=== PATIENT | female | born 1985 | race Caucasian/White ===

== ENCOUNTER 2019-10-10 09:42 | Outpatient (CLI) | payer BC, SELFPAY ==
[2019-10-10 10:37] LABS: Alanine Aminotransferase 19 U/L (4-35); Albumin Level 4.4 g/dL (3.5-5.1); Alkaline Phosphatase 124 U/L (38-126); Aspartate Amino Transferase 21 U/L (14-36); Bilirubin,Total 0.4 mg/dL (0.2-1.3); Blood Urea Nitrogen 12 mg/dL (7-17); Calcium 9.4 mg/dL (8.4-10.2); Carbon Dioxide 30 mmol/L (22-30); Chloride 104 mmol/L (98-107); Estimated Glomerular Filt Rate > 60; Glucose 74 mg/dL (65-105); Sodium 139 mmol/L (137-145)
[2019-10-10 11:06] LABS: Thyroid Stimulating Hormone 0.218 uIU/mL (0.465-4.680)
[2019-10-10 12:06] LABS: Free T4 Free Thyroxine 0.98 ng/mL (0.78-2.19)
[2019-10-13 02:24] LABS: Thyroid Peroxidase Antibodies <1 IU/mL (<9)
[2019-10-13 03:37] LABS: Triiodothyronine T3 Free 2.9 pg/mL (2.3-4.2)
[2019-10-16 19:09] LABS: Thyroid Stimulating Immunoglob <89 % baseline (<140)
== END 2019-10-10 09:43 | disposition home or self-care (01) ==
LOC: ANHLAB 09:44
PROVIDERS: PCP Nurse Practitioner Family; Visit Provider Internal Medicine Endocrinology, Diabetes & Metabolism
DX: R94.6 Abnormal results of thyroid function studies (principal)
CPT/HCPCS: 36415; 80053; 84439; 84443; 84445; 84481; 86376

== ENCOUNTER 2020-02-12 15:37 | Outpatient (CLI) | payer BC, SELFPAY ==
--- NOTE | ~2020-02-12 | US_ITS ---
EXAMINATION: US thyroid DATE: 02/12/2020 16:04 INDICATION: Thyroid nodule. TECHNIQUE: Multiple ultrasound images of the thyroid were obtained. COMPARISON: Ultrasound 08/07/2019 FINDINGS: The right thyroid lobe measures 5.9 x 2.7 x 1.7 cm. The left thyroid lobe measures 5.6 x 1.7 x 1.4 c m. In the right thyroid lobe, there is an 11 mm predominantly solid, hypoechoic, wzsth-gqir-cugy nod ule with smooth margin without echogenic foci (TI-RADS TR4). In the right thyroid lobe, there is a 6 mm solid, very hypoechoic, gaikg-ovyc-ltks nodule with smooth margin without echogenic foci (TR4). In the left thyroid lobe, there is a 1.6 cm mixed cystic and solid, isoechoic, dzire-umhx-zmxe nodule w ith ill-defined margin without echogenic foci (TR2). IMPRESSION: 1. Stable thyroid nodules. Thyroid ultrasound is recommended in one year. Reviewed, dictated and finalized at location A.
== END 2020-02-12 15:38 | disposition home or self-care (01) ==
LOC: ANHIMG 15:41
PROVIDERS: PCP Nurse Practitioner Family; Visit Provider Internal Medicine Endocrinology, Diabetes & Metabolism
DX: E04.2 Nontoxic multinodular goiter (principal)
CPT/HCPCS: 76536

== ENCOUNTER 2020-02-24 09:21 | Outpatient (CLI) | payer BC, SELFPAY ==
[2020-02-24 10:56] LABS: Alanine Aminotransferase 18 U/L (4-35); Albumin Level 4.5 g/dL (3.5-5.1); Alkaline Phosphatase 131 U/L (38-126); Anion Gap 12.8 mmol/L (7-16); Aspartate Amino Transferase 22 U/L (14-36); Bilirubin,Total 0.4 mg/dL (0.2-1.3); Blood Urea Nitrogen 10 mg/dL (7-17); Calcium 9.3 mg/dL (8.4-10.2); Carbon Dioxide 27 mmol/L (22-30); Chloride 101 mmol/L (98-107); Cholesterol 189 mg/dL (0-200); Estimated Glomerular Filt Rate > 60; Glucose 91 mg/dL (65-105); HDL Direct 60 mg/dL; Potassium 4.8 mmol/L (3.4-5.0); Sodium 136 mmol/L (137-145); Triglycerides 167 mg/dL (<150)
[2020-02-24 11:07] LABS: LDL Cholesterol Direct 99 mg/dL
[2020-02-24 11:31] LABS: Free T4 Free Thyroxine 0.92 ng/mL (0.78-2.19)
[2020-02-24 12:15] LABS: Hemoglobin A1C 4.8 % (<5.7)
[2020-02-28 12:26] LABS: Testosterone Total 51 ng/dL (2-45)
[2020-02-28 14:53] LABS: DHEA-Sulfate 313 mcg/dL (23-266)
[2020-02-29 06:34] LABS: Testosterone Free 5.4 pg/mL (0.2-5.0); Thyroid Peroxidase Antibodies <1 IU/mL (<9); Triiodothyronine T3 Free 3.4 pg/mL (2.3-4.2)
== END 2020-02-24 09:22 | disposition home or self-care (01) ==
LOC: ANHLAB 09:24
PROVIDERS: PCP Nurse Practitioner Family; Visit Provider Internal Medicine Endocrinology, Diabetes & Metabolism
DX: E04.1 Nontoxic single thyroid nodule (principal); R63.5 Abnormal weight gain; Z83.3 Family history of diabetes mellitus
CPT/HCPCS: 36415; 80053; 80061; 82308; 82627; 83036; 83525; 84402; 84403; 84439; 84443; 84481; 86376

== ENCOUNTER 2020-02-27 07:50 | Outpatient (CLI) | payer BC, SELFPAY ==
[2020-02-27 10:22] LABS: Cortisol Random 0.72 ug/dL
== END 2020-02-27 07:51 | disposition home or self-care (01) ==
PROVIDERS: PCP Nurse Practitioner Family; Visit Provider Internal Medicine Endocrinology, Diabetes & Metabolism
DX: R63.5 Abnormal weight gain (principal)
CPT/HCPCS: 36415; 82533

== ENCOUNTER 2020-08-17 08:00 | Outpatient (CLI) | payer BC, SELFPAY ==
[2020-08-17 08:47] LABS: Alanine Aminotransferase 17 U/L (4-35); Albumin Level 4.5 g/dL (3.5-5.1); Alkaline Phosphatase 106 U/L (38-126); Anion Gap 4 mmol/L (8-16); Aspartate Amino Transferase 22 U/L (14-36); Bilirubin,Total 0.5 mg/dL (0.2-1.3); Blood Urea Nitrogen 10 mg/dL (7-17); Calcium 9.5 mg/dL (8.4-10.2); Carbon Dioxide 28 mmol/L (22-30); Chloride 104 mmol/L (98-107); Estimated Glomerular Filt Rate > 60; Glucose 98 mg/dL (65-105); Hemoglobin A1C 4.8 % (<5.7); Sodium 136 mmol/L (137-145)
[2020-08-17 09:18] LABS: Thyroid Stimulating Hormone 0.561 uIU/mL (0.465-4.680)
[2020-08-17 09:19] LABS: Free T4 Free Thyroxine 0.89 ng/mL (0.78-2.19)
[2020-08-19 03:21] LABS: Thyroid Peroxidase Antibodies <1 IU/mL (<9)
[2020-08-20 04:05] LABS: Calcitonin <2 pg/mL (<=5)
[2020-08-20 13:37] LABS: Testosterone Free 2.5 pg/mL (0.1-6.4); Testosterone Total 14 ng/dL (2-45)
== END 2020-08-17 08:01 | disposition home or self-care (01) ==
PROVIDERS: PCP Nurse Practitioner Family; Visit Provider Internal Medicine Endocrinology, Diabetes & Metabolism
DX: E04.1 Nontoxic single thyroid nodule (principal); E28.2 Polycystic ovarian syndrome
CPT/HCPCS: 36415; 80053; 82308; 83036; 84402; 84403; 84439; 84443; 86376

== ENCOUNTER 2021-01-18 08:36 | Outpatient (CLI) | payer BC, SELFPAY ==
[2021-01-18 09:12] LABS: Alanine Aminotransferase 13 U/L (4-35); Albumin Level 4.5 g/dL (3.5-5.1); Alkaline Phosphatase 94 U/L (38-126); Anion Gap 9 mmol/L (8-16); Aspartate Amino Transferase 21 U/L (14-36); Bilirubin,Total 0.6 mg/dL (0.2-1.3); Blood Urea Nitrogen 13 mg/dL (7-17); Calcium 9.3 mg/dL (8.4-10.2); Carbon Dioxide 25 mmol/L (22-30); Chloride 105 mmol/L (98-107); Estimated Glomerular Filt Rate > 60; Glucose 91 mg/dL (65-105); Potassium 4.1 mmol/L (3.4-5.0); Sodium 139 mmol/L (137-145)
[2021-01-18 09:45] LABS: Thyroid Stimulating Hormone 0.312 uIU/mL (0.465-4.680)
[2021-01-18 09:58] LABS: Free T4 Free Thyroxine 1.17 ng/mL (0.78-2.19)
[2021-01-20 20:21] LABS: Thyroid Peroxidase Antibodies <1 IU/mL (<9)
[2021-01-21 05:19] LABS: Calcitonin <2 pg/mL (<=5)
[2021-01-21 14:57] LABS: Testosterone Free 3.6 pg/mL (0.1-6.4); Testosterone Total 18 ng/dL (2-45)
[2021-01-21 20:30] LABS: Triiodothyronine T3 Free 3.3 pg/mL (2.3-4.2)
== END 2021-01-18 08:37 | disposition home or self-care (01) ==
LOC: ANHLAB 08:39
PROVIDERS: PCP Nurse Practitioner Family; Visit Provider Internal Medicine Endocrinology, Diabetes & Metabolism
DX: E28.2 Polycystic ovarian syndrome (principal); E04.1 Nontoxic single thyroid nodule
CPT/HCPCS: 36415; 80053; 82308; 83036; 84402; 84403; 84439; 84443; 84481; 86376

== ENCOUNTER 2021-04-29 09:24 | Outpatient (CLI) | payer BC, SELFPAY ==
[2021-04-29 10:31] LABS: CRP < 0.5 mg/dL (<1.0)
[2021-04-29 10:35] LABS: Rheumatoid Factor < 8.6 IU/ML (<12)
[2021-04-29 10:46] LABS: Erythrocyte Sedimentation Rate 8 mm/hr (0-20)
== END 2021-04-29 09:25 | disposition home or self-care (01) ==
PROVIDERS: PCP Nurse Practitioner Family; Visit Provider Internal Medicine Endocrinology, Diabetes & Metabolism
DX: M19.90 Unspecified osteoarthritis, unspecified site (principal)
CPT/HCPCS: 36415; 85652; 86038; 86140; 86430

== ENCOUNTER 2021-07-06 08:14 | Outpatient (CLI) | payer BC, SELFPAY ==
--- NOTE | ~2021-07-06 | US_ITS ---
EXAMINATION: US thyroid DATE: 07/06/2021 09:25 INDICATION: Thyroid nodule TECHNIQUE: Multiple ultrasound images of the thyroid were obtained. COMPARISON: None. FINDINGS: The right thyroid lobe measures 6.2 x 2.6 x 1.9 cm. The left thyroid lobe measures 6.4 x 1.9 x 1.5 c m. No significant change in a 1.2 cm wider than tall mixed solid and cystic hypoechoic nodule with s mooth margins and without echogenic foci (TI-RADS 4, moderately suspicious , FNA if >=1.5 cm, annual followup is >=1 cm) at the inferior right thyroid. Unchanged 6 mm anechoic cystic TI-RADS 1 nodule at the inferior right thyroid. There are 3 nodules in the left thyroid lobe including 2 additional BI-R ADS 1 anechoic cystic nodules measuring 10 mm and 5 mm. The larger third 1.5 cm wider than tall nodul e at the inferior left thyroid lobe appears solid and hypoechoic with smooth margins and without echo genic foci whereas previously it was predominantly cystic, now consistent with a TI RADS 4 nodule. Th ere is normal echotexture, echogenicity and vascular flow throughout the thyroid gland. IMPRESSION: 1. Interval change in appearance of a previously predominant cystic, now solid 1.5 cm TI RADS 4 nodul e at the inferior left thyroid lobe for which ultrasound guided biopsy would be recommended. Reviewed, dictated and finalized at location B. [employer] IMPRESSION: 1. Interval change in appearance of a previously predominant cystic, now solid 1.5 cm TI RADS 4 nodule at the inferior left thyroid lobe for which ultrasound guided biopsy would be recommended.
[2021-07-06 09:10] LABS: Alanine Aminotransferase 17 U/L (4-35); Albumin Level 4.4 g/dL (3.5-5.1); Alkaline Phosphatase 112 U/L (38-126); Anion Gap 9 mmol/L (8-16); Aspartate Amino Transferase 21 U/L (14-36); Bilirubin,Total 0.4 mg/dL (0.2-1.3); Blood Urea Nitrogen 11 mg/dL (7-17); Calcium 9.3 mg/dL (8.4-10.2); Carbon Dioxide 27 mmol/L (22-30); Chloride 104 mmol/L (98-107); Estimated Glomerular Filt Rate > 60; Glucose 93 mg/dL (65-110); Potassium 4.2 mmol/L (3.4-5.0); Sodium 140 mmol/L (137-145)
[2021-07-06 09:34] LABS: Free T4 Free Thyroxine 1.21 ng/mL (0.78-2.19)
[2021-07-06 09:41] LABS: Thyroid Stimulating Hormone 0.435 uIU/mL (0.465-4.680)
[2021-07-08 06:45] LABS: Triiodothyronine T3 Free 3.5 pg/mL (2.3-4.2)
[2021-07-10 07:37] LABS: Calcitonin <2 pg/mL (<=5)
[2021-07-11 04:34] LABS: DHEA-Sulfate 264 mcg/dL (23-266); Thyroid Peroxidase Antibodies <1 IU/mL (<9)
[2021-07-12 14:24] LABS: Testosterone Free 6.2 pg/mL (0.1-6.4); Testosterone Total 30 ng/dL (2-45)
== END 2021-07-06 08:15 | disposition home or self-care (01) ==
LOC: ANHIMG 08:18
PROVIDERS: PCP Nurse Practitioner Family; Visit Provider Internal Medicine Endocrinology, Diabetes & Metabolism
DX: E04.1 Nontoxic single thyroid nodule (principal); E28.2 Polycystic ovarian syndrome
CPT/HCPCS: 36415; 76536; 80053; 82308; 82627; 84402; 84403; 84439; 84443; 84481; 86376

== ENCOUNTER 2022-02-07 07:36 | Outpatient (CLI) | payer BC, SELFPAY ==
[2022-02-07 08:17] LABS: Alanine Aminotransferase 23 U/L (6-35); Albumin Level 4.6 g/dL (3.5-5.1); Alkaline Phosphatase 111 U/L (38-126); Anion Gap 5 mmol/L (8-16); Aspartate Amino Transferase 21 U/L (14-36); Bilirubin,Total 0.2 mg/dL (0.2-1.3); Blood Urea Nitrogen 9 mg/dL (7-17); Carbon Dioxide 29 mmol/L (22-30); Chloride 103 mmol/L (98-107); Estimated Glomerular Filt Rate > 60; Glucose 87 mg/dL (65-110); Potassium 4.1 mmol/L (3.4-5.0); Sodium 137 mmol/L (137-145)
[2022-02-07 08:44] LABS: Thyroid Stimulating Hormone 0.582 uIU/mL (0.465-4.680)
[2022-02-07 09:23] LABS: Free T4 Free Thyroxine 0.98 ng/mL (0.78-2.19)
[2022-02-09 11:15] LABS: DHEA-Sulfate 168 mcg/dL (23-266)
[2022-02-10 04:18] LABS: Thyroid Peroxidase Antibodies <1 IU/mL (<9); Triiodothyronine T3 Free 3.3 pg/mL (2.3-4.2)
[2022-02-10 13:37] LABS: Calcitonin <2 pg/mL (<=5)
[2022-02-13 10:47] LABS: Testosterone Free 3.1 pg/mL (0.1-6.4); Testosterone Total 19 ng/dL (2-45)
== END 2022-02-07 07:37 | disposition home or self-care (01) ==
LOC: ANHLAB 07:38
PROVIDERS: PCP Nurse Practitioner Family; Visit Provider Internal Medicine Endocrinology, Diabetes & Metabolism
DX: E28.2 Polycystic ovarian syndrome (principal); E04.1 Nontoxic single thyroid nodule
CPT/HCPCS: 36415; 80053; 82308; 82627; 84402; 84403; 84439; 84443; 84481; 86376

== ENCOUNTER → 2022-05-26 08:42 | Outpatient (CLI) | payer BC, SELFPAY ==
--- NOTE | ~2022-05-26 | US_ITS ---
US thyroid INDICATION: Thyroid nodule follow-up TECHNIQUE: Real-time sonographic images of the thyroid gland were obtained. COMPARISON: Ultrasound dated 07/06/2021 FINDINGS: The right thyroid lobe measures 5.5 x 1.9 x 2 cm. The left thyroid lobe measures 5.5 x 1.6 x 1.7 cm. There is normal echotexture and echogenicity throughout the thyroid gland. In the right lo be there is a mixed solid and cystic mass with internal septations measuring 1.3 x 1.1 x 1.1 cm. No i nternal vascularity. There is posterior acoustic enhancement. No significant interval change. This ma ss is wider than tall, hypoechoic, smoothly marginated without punctate echogenic foci, TR 3. In the left lobe there is an oval hypoechoic solid mass which is wider than tall with smooth floresita ns and without echogenic foci measuring 1.5 x 1.3 x 0.8 cm compared with 1.5 x 1.3 x 0.8 cm on prior examination, TR 4. No significant interval change. There is also a stable spongiform 6 mm mass in the left lobe which is wider than tall, smoothly marginated without echogenic foci, TR 2. IMPRESSION: 1. Stable 1.5 cm left thyroid mass, TR 4. Given interval stability this may be followed in 12 months or fine needle aspiration may be performed. Reviewed, dictated and finalized at location B.
== END ==
LOC: EXPGOSHRAD 08:45
PROVIDERS: PCP Internal Medicine Endocrinology, Diabetes & Metabolism; Visit Provider Internal Medicine Endocrinology, Diabetes & Metabolism
DX: E04.1 Nontoxic single thyroid nodule (principal)
CPT/HCPCS: 76536

== ENCOUNTER 2022-10-31 07:21 | Outpatient (CLI) | payer BC, SELFPAY ==
[2022-10-31 08:36] LABS: Alanine Aminotransferase 17 U/L (6-35); Albumin Level 4.3 g/dL (3.5-5.1); Alkaline Phosphatase 106 U/L (38-126); Anion Gap 6 mmol/L (8-16); Aspartate Amino Transferase 20 U/L (14-36); Bilirubin,Total 0.6 mg/dL (0.2-1.3); Blood Urea Nitrogen 9 mg/dL (7-17); Calcium 8.7 mg/dL (8.4-10.2); Carbon Dioxide 26 mmol/L (22-30); Chloride 104 mmol/L (98-107); Estimated Glomerular Filt Rate > 60; Glucose 87 mg/dL (65-110); Potassium 4.5 mmol/L (3.4-5.0); Sodium 136 mmol/L (137-145)
[2022-10-31 08:54] LABS: Hemoglobin A1C 4.8 % (<5.7)
[2022-10-31 09:05] LABS: Free T4 Free Thyroxine 0.94 ng/mL (0.78-2.19)
[2022-11-03 11:44] LABS: DHEA-Sulfate 174 mcg/dL (23-266)
[2022-11-04 19:26] LABS: Testosterone Free 3.7 pg/mL (0.1-6.4); Testosterone Total 19 ng/dL (2-45)
== END 2022-10-31 07:22 | disposition home or self-care (01) ==
LOC: ANHLAB 07:22
PROVIDERS: PCP Internal Medicine Endocrinology, Diabetes & Metabolism; Visit Provider Internal Medicine Endocrinology, Diabetes & Metabolism
DX: E28.2 Polycystic ovarian syndrome (principal)
CPT/HCPCS: 36415; 80053; 82627; 83036; 84402; 84403; 84439; 84443

== ENCOUNTER 2023-01-05 07:19 | Outpatient (CLI) | payer BC, SELFPAY ==
[2023-01-05 08:27] LABS: Alanine Aminotransferase 21 U/L (6-35); Albumin Level 4.5 g/dL (3.5-5.1); Alkaline Phosphatase 108 U/L (38-126); Anion Gap 5 mmol/L (8-16); Aspartate Amino Transferase 23 U/L (14-36); Bilirubin,Total 0.5 mg/dL (0.2-1.3); Blood Urea Nitrogen 10 mg/dL (7-17); Calcium 9.3 mg/dL (8.4-10.2); Carbon Dioxide 31 mmol/L (22-30); Chloride 103 mmol/L (98-107); Estimated Glomerular Filt Rate > 60; Glucose 77 mg/dL (65-110); Potassium 4.2 mmol/L (3.4-5.0); Sodium 139 mmol/L (137-145)
[2023-01-05 08:45] LABS: Hemoglobin A1C 4.9 % (<5.7)
[2023-01-05 08:52] LABS: Free T4 Free Thyroxine 1.25 ng/mL (0.78-2.19)
[2023-01-05 09:04] LABS: Thyroid Stimulating Hormone 0.207 uIU/mL (0.465-4.680)
[2023-01-09 12:53] LABS: DHEA-Sulfate 132 mcg/dL (23-266)
[2023-01-10 17:27] LABS: Testosterone Free 3.2 pg/mL (0.1-6.4); Testosterone Total 19 ng/dL (2-45)
== END 2023-01-05 07:20 | disposition home or self-care (01) ==
LOC: ANHLAB 07:20
PROVIDERS: PCP Internal Medicine Endocrinology, Diabetes & Metabolism; Visit Provider Internal Medicine Endocrinology, Diabetes & Metabolism
DX: E28.2 Polycystic ovarian syndrome (principal)
CPT/HCPCS: 36415; 80053; 82627; 83036; 84402; 84403; 84439; 84443